=== PATIENT | female | born 1925 | race Caucasian/White ===

== ENCOUNTER → 2017-04-23 | Outpatient (CLI) | payer OTHER ==
[~2017-04-23] VITALS: Ht 157.5 cm; Wt 48.8 kg
[~2017-04-23] MED LIST: ALEN1TAB48 PO; AMLO5TAB2 PO; APIX2.5T PO; BUSP5TAB PO; CHLORHEXIDINE GLUCONATE 2 % 1 PACK (2 CLOTHS) TOPICAL PRN; HYDR-3516 PO; LACTATED RINGER'S 1000 ML IV PRN; LEVO75TA3 PO; LIDOCAINE HCL 1% PF 5 ML SYRINGE OTHER ONE; METOPROLOL TARTRATE 25 MG TAB PO PRN; MIRTA15 PO; OXYB5TAB8 PO; PANT40TA3 PO; POTA-163 PO; POVIDONE IODINE 5% (ANTISEPSIS KIT) 4 APPLICATIONS EACH NARE PRN; PROPOFOL 200 MG/20 ML AMP IV ONE; RANI150T PO; SACC1CAP3 PO; SODIUM CHLORID 0.9% 500 ML IV PRN; TIZA2TAB PO; VITA10004 PO; VITA100064 PO; VITA200C3 PO; ZOFR4TAB PO
--- NOTE | 2017-04-23 10:11 | PD.PROCEDR ---
GI Procedure PROCEDURE PERFORMED Endoscopic ultrasound INDICATION FOR PROCEDURE Abnormal imaging showing dilated bile duct and possible pancreatic mass PROCEDURE: The procedure, risks and benefits were discussed with Ms. Salazar and informed consent was obtained. Anesthesia sedated her with Diprivan. She was placed in the left lateral decubitus position. Endoscopic ultrasound: The Pentax videoscope was introduced through the oropharynx and advanced to the second portion of the duodenum FINDINGS: Pancreatic parenchyma appeared to be unremarkable and within normal limits from head to tail Pancreatic duct appeared to be unremarkable with mild dilation in the pancreatic head portion but no in usual changes of caliber and no filling defects Unremarkable, bile duct with no filling defects and no irregularities The ampulla also was unremarkable with normal limits No lymphadenopathy noted ESTIMATED BLOOD LOSS: None SPECIMENS REMOVED: None COMPLICATIONS: None IMPRESSION: Unremarkable endoscopic ultrasound of the pancreas and the biliary system PLAN: Follow up in clinic in 2-4 weeks Repeat CA 19-9 prior office visit Fabrice Sarkar MD Apr 23, 2017 10:11
[2017-04-23 10:30] VITALS: BP 121/73; PULSE 86; RESP 16; TEMP 98.1; O2SAT 97
--- NOTE | 2017-04-24 09:41 | EKG ---
Date Performed: 04/23/2017 Time Performed: 08:18:49 PTAGE: 89 years EKG: Sinus rhythm NORMAL ECG Since the prior tracing, there has been no significant change PREVIOUS TRACING : 09/07/2012 10.55 DOCTOR: Isaiah Craven Interpretating Date/Time 04/24/2017 09:38:33
== END ==
LOC: HSDC 07:17
PROVIDERS: ATTEND Internal Medicine Gastroenterology
DX: K83.8 Other specified diseases of biliary tract (principal); Z01.810 Encounter for preprocedural cardiovascular examination
CPT/HCPCS: 00731; 43259; 93005; J7120